=== PATIENT | male | born 1940 | race Caucasian/White ===

== ENCOUNTER 2021-07-01 12:47 | Emergency (ER) | payer OTHER ==
[~2021-07-01] VITALS: Ht 167.6 cm; Wt 81.8 kg
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
[2021-07-01] MEDS ORDERED: ISOVUE-370 76% 100ML VIAL As Ordered ONE ×2 (15:19→16:00)
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
[2021-07-01 18:00] VITALS: BP 141/74
--- NOTE | 2021-07-01 18:14 | ECGEPIP ---
[facility] - ED Test Date: 2021-07-01 Pat Name: ANÍBAL CORDON Department: Room: - Gender: Male [employer]ist: KYLIE : 1940 Requested By: CATALINA Lazaro Order Number: [id number] Reading MD: Guilherme Cole Measurements Intervals [place] Rate: 76 P: 37 IA: 174 QRS: -85 QRSD: 144 T: 12 QT: 424 QTc: 477 Interpretive Statements Normal sinus rhythm Right bundle branch block Left anterior fascicular block Bifascicular block NO PRIORS FOR COMPARISON Electronically Signed on 07-01-2021 18:14:00 EST by Guilherme Cole
== END 2021-07-01 18:35 | disposition home or self-care (01) ==
LOC: M ED 12:47
DX: S20.219A Contusion of unspecified front wall of thorax, initial encounter (principal); V49.40XA Driver injured in collision with unspecified motor vehicles in traffic accident, initial encounter; M47.812 Spondylosis without myelopathy or radiculopathy, cervical region; R94.31 Abnormal electrocardiogram [ECG] [EKG]; J98.11 Atelectasis; K80.20 Calculus of gallbladder without cholecystitis without obstruction; K57.30 Diverticulosis of large intestine without perforation or abscess without bleeding; M85.80 Other specified disorders of bone density and structure, unspecified site
CPT/HCPCS: 36415; 70450; 71045; 71260; 72125; 74177; 80047; 84484; 93005; 99285; Q9967